=== PATIENT | male | born 1965 | race Caucasian/White ===

== ENCOUNTER 2019-10-31 17:11 | Inpatient (IN) | payer BC ==
--- NOTE | 2019-10-31 18:37 | PDOC ---
History of Present Illness - General Chief Complaint: Pain Stated Complaint: ABDOMINAL PAIN Time Seen by Provider: 10/31/19 18:10 History Source: Patient Exam Limitations: No Limitations - History of Present Illness Travel History: No Initial Comments: 10/31/19 18:31 53-year-old male presents to ED with complaints of lower abdominal pain associated with nausea and vomited x1 this morning. Patient states went to an urgent care clinic and was sent here for further evaluation to intestinal obstruction. Patient states abdomen feels firm remains to move his bowels. Patient denies fever, chills or change in urine pattern. Patient does state history of BPH and states he has had more difficulty making urine this morning. Patient states is followed by Dr. Chuy Jones who is aware of patient's ER visit today. Patient denies any GI surgery or GI history including diverticulosis Timing/Duration: reports: constant Quality: reports: mild, cramping Abdominal Pain Onset Location: reports: RLQ, LLQ, suprapubic Pain Radiation: reports: no radiation Activities at Onset: reports: none Aggravating Factors: improves with: None Alleviating Factors: improves with: None Past History - Travel History Traveled outside of the country in the last 30 days: No Close contact w/someone who was outside of country & ill: No - Medical History Allergies/Adverse Reactions: Allergies Allergy/AdvReac Type Severity Reaction Status Date / Time No Known Allergies Allergy Verified 11/01/19 13:46 Home Medications: Ambulatory Orders Alfuzosin HCl [Alfuzosin HCl ER] 10 mg PO DAILY 10/31/19 Levothyroxine Sodium [Synthroid] 88 mcg PO DAILY 10/31/19 Pantoprazole Sodium [Protonix -] 40 mg PO DAILY 30 Days #30 tablet.ec 11/04/19 COPD: No Thyroid Disease: No Other medical history: prostate - Surgical History Abdominal Surgery: Yes (hernia) - Psycho-Social/Smoking History Patient Lives Alone: No Lives with/in: spouse/SO Smoking Status: No Smoking History: Never smoked Number of Cigarettes Smoked Daily: 0 - Substance Abuse Hx (Audit-C & DAST Scrn) How often the patient has a drink containing alcohol: Never Score: In Men: 4 or > Positive; In Women: 3 or > Positive: 0 Screen Result (Pos requires Nsg. Audit-10AR): Negative Review of Systems - Review of Systems Able to Perform ROS?: No Is the patient limited Azerbaijani proficient: No Constitutional: No: Symptoms Reported HEENTM: No: Symptoms Reported Respiratory: No: Symptoms reported Cardiac (ROS): No: Symptoms Reported ABD/GI: Yes: Nausea, Vomiting, Abdominal cramping. No: Constipated, Diarrhea : Yes: Frequency. No: Testicular Pain Musculoskeletal: No: Symptoms Reported Integumentary: No: Symptoms Reported Neurological: No: Symptoms reported Endocrine: No: Symptoms Reported Hematologic/Lymphatic: No: Symptoms Reported *Physical Exam - Vital Signs Last Vital Signs Temp Pulse Resp BP Pulse Ox 97 F L 68 18 128/80 99 10/31/19 17:26 10/31/19 17:26 10/31/19 17:26 10/31/19 17:26 10/31/19 17:26 - Physical Exam General Appearance: Yes: Nourished, Appropriately Dressed. No: Apparent Distress HEENT: negative: Pale Conjunctivae Neck: positive: Normal Thyroid, Supple. negative: Decreased range of motion Respiratory/Chest: positive: Lungs Clear, Normal Breath Sounds. negative: Respiratory Distress, Accessory Muscle Use Gastrointestinal/Abdominal: positive: Normal Bowel Sounds, Tenderness (Left mid and right suprapubic along with lower quadrants). negative: Soft (Firm), Distended, Guarding, Rebound Male Genitalia: positive: normal genitalia Musculoskeletal: negative: CVA Tenderness Extremity: positive: Normal Inspection Integumentary: positive: Normal Color, Warm, Moist Neurologic: positive: Motor Strength 5/5 (ambualtory) ED Treatment Course - LABORATORY CBC & Chemistry Diagram: 11/02/19 07:30 11/03/19 07:10 Medical Decision Making - Medical Decision Making 10/31/19 18:36 Chief complaint: Patient with no abdominal pain short nausea and vomiting since this morning. Patient states increased urination over the past 24 hours but states history of BPH. Patient denies GI history but was sent from urgent care clinic to rule out obstruction. Exam: Patient's abdomen firm without guarding or rebound bowel sounds present x4 no palpable mass. Plan: CBC, comp, urine IV fluids, Zofran, IV Tylenol, and CAT scan ordered Discharge - Discharge Information Problems reviewed: Yes Clinical Impression/Diagnosis: SBO (small bowel obstruction) Condition: Stable Disposition: HOME - Follow up/Referral - Patient Discharge Instructions - Post Discharge Activity
[2019-10-31] MEDS ORDERED: ACETAMINOPHEN 1000 MG/100 ML VIAL (NON FORMULARY) IVPB ONE (18:38)
[2019-10-31] MEDS ORDERED: SODIUM CHLORIDE 1,000 ML IV STA (18:38)
[2019-10-31] MEDS ORDERED: ONDANSETRON 4 MG/2 ML VIAL IVPUSH ONE (18:38)
[2019-10-31] MEDS ORDERED: ACETAMINOPHEN INJECTION 100 ML IVPB ONE (18:50)
[2019-10-31 20:06] LABS: URINE APPEARANCE CLEAR; URINE BILIRUBIN NEGATIVE (NEGATIVE); URINE COLOR YELLOW; URINE GLUCOSE (UA) NEGATIVE (NEGATIVE); URINE KETONE TRACE (NEGATIVE); URINE LEUK ESTERASE NEGATIVE (NEGATIVE); URINE NITRITE NEGATIVE (NEGATIVE); URINE PROTEIN TRACE (NEGATIVE); URINE UROBILINOGEN 0.2 mg/dL (0.2-1.0)
[2019-10-31 20:11] LABS: BASO % 0.2 % (0-2.0); EOS % 0.2 % (0-4.5); HEMATOCRIT 45.5 % (35.4-49); HEMOGLOBIN 15.4 GM/dL (11.7-16.9); LYMPH % 7.9 % (8-40); MCH 31.9 pg (25.7-33.7); MCHC 33.9 g/dl (32.0-35.9); MEAN CELL VOLUME 94.2 fl (80-96); MEAN PLT VOLUME 8.5 fl (7.5-11.1); NEUT % 88.7 % (42.8-82.8); PLATELET COUNT 193 K/MM3 (134-434); RBC 4.83 M/mm3 (4.00-5.60); RDW 12.8 % (11.9-15.9); WHITE BLOOD COUNT 10.6 K/mm3 (4.0-10.0)
--- NOTE | 2019-10-31 20:23 | PDOC ---
*Physical Exam - Vital Signs Last Vital Signs Temp Pulse Resp BP Pulse Ox 97 F L 68 18 128/80 99 10/31/19 17:26 10/31/19 17:26 10/31/19 17:26 10/31/19 17:26 10/31/19 17:26 - Physical Exam 10/31/19 20:23 Received sign out <Bennett Pineda - Last Filed: 10/31/19 20:23> - Vital Signs Last Vital Signs Temp Pulse Resp BP Pulse Ox 97 F L 68 18 128/80 99 10/31/19 17:26 10/31/19 17:26 10/31/19 17:26 10/31/19 17:26 10/31/19 17:26 <Negin Sepulveda - Last Filed: 10/31/19 23:11> ED Treatment Course - LABORATORY CBC & Chemistry Diagram: 10/31/19 19:00 10/31/19 19:00 - ADDITIONAL ORDERS Additional order review: Laboratory Results 10/31/19 19:00 Urine Color Yellow Urine Appearance Clear Urine pH 5.0 Ur Specific [place] 1.023 Urine Protein Trace Urine Glucose (UA) Negative Urine Ketones Trace H Urine Blood Negative Urine Nitrite Negative Urine Bilirubin Negative Urine Urobilinogen 0.2 Ur Leukocyte Esterase Negative 10/31/19 19:00 RBC 4.83 MCV 94.2 MCHC 33.9 RDW 12.8 MPV 8.5 Neutrophils % 88.7 H Lymphocytes % 7.9 L Monocytes % 3.0 L Eosinophils % 0.2 Basophils % 0.2 - Medications Given in the ED: ED Medications Discontinued Medications Generic Name Dose Route Start Last Admin Trade Name Shantal PRN Reason Stop Dose Admin Acetaminophen 1,000 mg 10/31/19 18:38 10/31/19 19:14 Ofirmev Injection - IVPB 10/31/19 18:39 1,000 mg ONCE ONE Administration Sodium Chloride 1,000 mls @ 1,000 mls/hr 10/31/19 18:38 10/31/19 19:14 Normal Saline - IV 10/31/19 19:37 1,000 mls/hr ASDIR STA Administration Ondansetron HCl 4 mg 10/31/19 18:38 10/31/19 19:14 Zofran Injection IVPUSH 10/31/19 18:39 4 mg ONCE ONE Administration <Bennett Pienda - Last Filed: 10/31/19 20:23> - LABORATORY CBC & Chemistry Diagram: 10/31/19 19:00 10/31/19 19:00 - ADDITIONAL ORDERS Additional order review: Laboratory Results 10/31/19 10/31/19 10/31/19 22:15 19:00 19:00 PT with INR 12.60 INR 1.07 Sodium 138 Potassium 4.1 Chloride 104 Carbon Dioxide 26 Anion Gap 8 BUN 17.1 Creatinine 0.7 Est GFR (CKD-EPI)AfAm 123.13 Est GFR (CKD-EPI)NonAf 106.24 Random Glucose 102 Calcium 9.4 Magnesium 2.3 Total Bilirubin 1.0 AST 17 ALT 35 Alkaline Phosphatase 85 Total Protein 7.6 Albumin 4.5 Lipase 77 Urine Color Yellow Urine Appearance Clear Urine pH 5.0 Ur Specific [place] 1.023 Urine Protein Trace Urine Glucose (UA) Negative Urine Ketones Trace H Urine Blood Negative Urine Nitrite Negative Urine Bilirubin Negative Urine Urobilinogen 0.2 Ur Leukocyte Esterase Negative 10/31/19 19:00 RBC 4.83 MCV 94.2 MCHC 33.9 RDW 12.8 MPV 8.5 Neutrophils % 88.7 H Lymphocytes % 7.9 L Monocytes % 3.0 L Eosinophils % 0.2 Basophils % 0.2 - Medications Given in the ED: ED Medications Discontinued Medications Generic Name Dose Route Start Last Admin Trade Name Shantal PRN Reason Stop Dose Admin Acetaminophen 1,000 mg 10/31/19 18:38 10/31/19 19:14 Ofirmev Injection - IVPB 10/31/19 18:39 1,000 mg ONCE ONE Administration Sodium Chloride 1,000 mls @ 1,000 mls/hr 10/31/19 18:38 10/31/19 19:14 Normal Saline - IV 10/31/19 19:37 1,000 mls/hr ASDIR STA Administration Ondansetron HCl 4 mg 10/31/19 18:38 10/31/19 19:14 Zofran Injection IVPUSH 10/31/19 18:39 4 mg ONCE ONE Administration <Negin Sepulveda Phyllis - Last Filed: 10/31/19 23:11> Medical Decision Making - Medical Decision Making 10/31/19 23:11 Patient seen by the advanced practice provider under my supervision. Ancillary testing reviewed as necessary. I agree with plan as outlined by the advanced practice provider. <Negin Sepulveda - Last Filed: 10/31/19 23:11> Discharge <Bennett Pineda - Last Filed: 10/31/19 20:23> - Discharge Information Problems reviewed: Yes <Negin Sepulveda - Last Filed: 10/31/19 23:11> - Discharge Information Clinical Impression/Diagnosis: SBO (small bowel obstruction)
[2019-10-31 20:35] LABS: ALBUMIN 4.5 g/dl (3.4-5.0); BLOOD UREA NITROGEN 17.1 mg/dL (7-18); CALCIUM 9.4 mg/dL (8.5-10.1); CREATININE 0.7 mg/dL (0.55-1.3); MAGNESIUM 2.3 mg/dL (1.8-2.4); POTASSIUM 4.1 mmol/L (3.5-5.1); TOT PROT 7.6 g/dl (6.4-8.2)
[2019-10-31 22:50] LABS: INR 1.07 (0.83-1.09); PROTHROMBIN TIME (PATIENT) 12.6 SEC (9.7-13.0)
[2019-10-31] MEDS ORDERED: SODIUM CHLORIDE 1,000 ML IV SCH (23:45)
--- NOTE | 2019-10-31 23:59 | PN ---
Teaching Attending Note Name of Resident: Norman Grande ATTENDING PHYSICIAN STATEMENT I saw and evaluated the patient. I reviewed the resident's note and discussed the case with the resident. I agree with the resident's findings and plan as documented. SUBJECTIVE: Patient is a 53 year old man with a PMH of BPH and Hypothyroidism who presents to the ER with complaints of lower abdominal pain associated with nausea and vomitng -this morning. He went to an Urgent care clinic and was sent to the ER for further evaluation to rule out intestinal obstruction. Says he has had more difficulty making urine this morning. Patient denies any GI surgery or GI disease. Patient denies chest pain, shortness of breath, headache, palpitations, dizziness, fever, chills, diarrhea, dysuria, frequency, urgency, melena, hematochezia or hematuria. Denies alcohol, tobacco or illicit drug use. No sick contacts or recent travels. Family history is unremarkable. OBJECTIVE: Alert Vital Signs Period Temp Pulse Resp BP Sys/Ward Pulse Ox Last 24 Hr 97 F 68 18 128/80 99 HEENT: No Jaundice, eye redness or discharge, PERRLA, EOMI. Normocephalic, atraumatic. External ears are normal and hearing is grossly intact. No nasal discharge. Neck: Supple, nontender. No palpable adenopathy or thyromegaly. No JVD Chest: Good effort. Clear to auscultation and percussion. Heart: Regular. No S3, rub or murmur Abdomen: Distended, soft, lower abdominal tenderness and no HSM. No rebound or guarding. Normal bowel sounds. Ext: Peripheral pulses intact. No leg edema. Skin: Warm and dry. No petechiae, rash or ecchymosis. Neuro: Alert. Oriented x3. CN 2-12 grossly intact. Sensation grossly intact in all four extremities and DTR are symmetric. Psych: Appropriate mood and affect. Good insight. Home Medications Medication Instructions Recorded Alfuzosin HCl [Alfuzosin HCl ER] 10 mg PO DAILY 10/31/19 Levothyroxine Sodium [Synthroid] 88 mcg PO DAILY 10/31/19 Abnormal Lab Results 10/31/19 10/31/19 19:00 19:00 WBC 10.6 H Absolute Neuts (auto) 9.4 H Neutrophils % 88.7 H Lymphocytes % 7.9 L Monocytes % 3.0 L Urine Ketones Trace H Current Medications Generic Name Dose Route Start Last Admin Trade Name Freq PRN Reason Stop Dose Admin Sodium Chloride 1,000 mls @ 100 mls/hr 10/31/19 23:45 Normal Saline - IV ASDIR INDY Dextrose/Sodium Chloride 1,000 mls @ 75 mls/hr 11/01/19 00:15 D5-Ns - IV ASDIR INDY ASSESSMENT AND PLAN: 1. Small bowel obstruction - CT abdomen/pelvis shows SBO with transition point in the right pelvis and internal hernia. Will keep him NPO, give IV D5-NS, use Tylenol for pain control and consult Surgery. CXR pending. EKG shows NSR at 63/minute and QTc [address]-T wave changes. Initial troponin is negative. Viral testing for COVID-19 ordered and patient placed on airborne, droplet and contact isolation. Will continue comprehensive care for all of patients comorbid conditions including Synthroid for hypothyroidism. 2. DVT prophylaxis - SCD. 3. Advance directives - Full code
[2019-11-01] MEDS ORDERED: DEXTROSE 5%-NORMAL SALINE 1,000 ML IV SCH (00:15)
[2019-11-01] MEDS ORDERED: ONDANSETRON 4 MG/2 ML VIAL IVPUSH ONE ×2 (00:19→15:00)
--- NOTE | 2019-11-01 02:59 | HP ---
CHIEF COMPLAINT: lower abdominal pain PCP: Dr. Jones HISTORY OF PRESENT ILLNESS: Pt is a 53 yo M with PMH of BPH and Hypothyroidism presenting with lower abdominal pain since 5 AM on 10/30. Pt reports sudden onset non-radiating cramping, 10/24, abdominal pain that is intermittent (episodes every 30 min - 1 hour). Took advil and tylenol with some relief. Associated nausea, non-bloody bilious vomiting (x2, once at home, once in ED), "bloating," and decreased appetite. Pt has not moved bowels or passed flatus since the onset of the pain. Denies CP, SOB, diarrhea, recent weight loss, fever, or chills. Pt was evaluated at an urgent care and was told to come to the ED for evaluation of an intestinal obstruction. No prior GI surgeries. No prior GI related medical hx other than an internal hernia that was not fixed. Pt also with increased straining during urination, increased frequency of urination but small quantities of urine, and feeling of incomplete emptying over the last day. Pt denies dysuria or hematuria. Pt reports he hasn't been as consistent taking his BPH medication over the last several days, although he usually is. 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 Smoking: Denies Alcohol: Drinks alcohol 5 times a week; usually 1 drink with dinner Drugs: Denies Allergies No Known Allergies Allergy (Verified 10/31/19 17:30) HOME MEDICATIONS: Home Medications Medication Instructions Recorded Alfuzosin HCl [Alfuzosin HCl ER] 10 mg PO DAILY 10/31/19 Levothyroxine Sodium [Synthroid] 88 mcg PO DAILY 10/31/19 REVIEW OF SYSTEMS as per HPI. PHYSICAL EXAMINATION Vital Signs - 24 hr 10/31/19 17:26 Temperature 97 F L Pulse Rate 68 Respiratory 18 Rate Blood Pressure 128/80 O2 Sat by Pulse 99 Oximetry (%) GENERAL: Awake, alert, and fully oriented, in no acute distress. Pt in mild discomfort HEAD: NCAT EYES: Pupils equal, round and reactive to light, extraocular movements intact, sclera anicteric, conjunctiva clear. EARS, NOSE, THROAT: Oropharynx clear without exudates. Dry mucuous membranes. NECK: Normal range of motion, supple without lymphadenopathy LUNGS: Breath sounds equal, clear to auscultation bilaterally. No wheezes, and no crackles. No accessory muscle use. HEART: Regular rate and rhythm, normal S1 and S2 without murmur, rub or gallop. ABDOMEN: Tense, mildly distended abdomen; mild tenderness to palpation of lower abdominal quadrants with mild rebound tenderness CHRISTOPHER: no external hemorrhoids; good rectal tone; no saleem bleeding; small amounts of stool in rectal vault; no other masses or bulges palpated internally MUSCULOSKELETAL: Moving all extremities equally and spontaneously UPPER EXTREMITIES: 2+ pulses, warm, well-perfused. No peripheral edema. LOWER EXTREMITIES: 2+ pulses, warm, well-perfused. No peripheral edema. NEUROLOGICAL: Sensation to light touch intact. Normal speech. Normal gait. PSYCHIATRIC: Cooperative. Good eye contact. Appropriate mood and affect. SKIN: Warm, dry, normal turgor, no rashes or lesions. Laboratory Results - last 24 hr 10/31/19 10/31/19 10/31/19 19:00 19:00 19:00 WBC 10.6 H RBC 4.83 Hgb 15.4 Hct 45.5 MCV 94.2 MCH 31.9 MCHC 33.9 RDW 12.8 Plt Count 193 MPV 8.5 Absolute Neuts (auto) 9.4 H Neutrophils % 88.7 H Lymphocytes % 7.9 L Monocytes % 3.0 L Eosinophils % 0.2 Basophils % 0.2 Nucleated RBC % 0 PT with INR INR Sodium 138 Potassium 4.1 Chloride 104 Carbon Dioxide 26 Anion Gap 8 BUN 17.1 Creatinine 0.7 Est GFR (CKD-EPI)AfAm 123.13 Est GFR (CKD-EPI)NonAf 106.24 Random Glucose 102 Calcium 9.4 Magnesium 2.3 Total Bilirubin 1.0 AST 17 ALT 35 Alkaline Phosphatase 85 Creatine Kinase Troponin I Total Protein 7.6 Albumin 4.5 Lipase 77 Urine Color Yellow Urine Appearance Clear Urine pH 5.0 Ur Specific [place] 1.023 Urine Protein Trace Urine Glucose (UA) Negative Urine Ketones Trace H Urine Blood Negative Urine Nitrite Negative Urine Bilirubin Negative Urine Urobilinogen 0.2 Ur Leukocyte Esterase Negative Blood Type Antibody Screen 10/31/19 10/31/19 10/31/19 22:15 22:15 22:15 WBC RBC Hgb Hct MCV MCH MCHC RDW Plt Count MPV Absolute Neuts (auto) Neutrophils % Lymphocytes % Monocytes % Eosinophils % Basophils % Nucleated RBC % PT with INR 12.60 INR 1.07 Sodium Potassium Chloride Carbon Dioxide Anion Gap BUN Creatinine Est GFR (CKD-EPI)AfAm Est GFR (CKD-EPI)NonAf Random Glucose Calcium Magnesium Total Bilirubin AST ALT Alkaline Phosphatase Creatine Kinase 103 Troponin I < 0.02 Total Protein Albumin Lipase Urine Color Urine Appearance Urine pH Ur Specific [place] Urine Protein Urine Glucose (UA) Urine Ketones Urine Blood Urine Nitrite Urine Bilirubin Urine Urobilinogen Ur Leukocyte Esterase Blood Type O NEGATIVE Antibody Screen Negative ASSESSMENT/PLAN: Pt is a 53 yo M with PMH of BPH and hypothyroidism presenting with lower abdominal pain since this morning; CT significant for SBO with transition pt in R pelvis and internal hernia. Pt being admitted for small bowel obstruction. 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 #DVT PPx - SCDs #FEN -F - D5-NS @ 75 cc/hr -E - monitor; repletes lytes PRN -N - NPO #Dispo Admit to med-surg Code Status - full code Family Medical History Family History: As Documented Visit type - Emergency Visit Emergency Visit: Yes ED Registration Date: 10/31/19 Care time: The patient presented to the Emergency Department on the above date and was hospitalized for further evaluation of their emergent condition. - New Patient This patient is new to me today: Yes Date on this admission: 11/01/19 - Critical Care Critical Care patient: No ATTENDING PHYSICIAN STATEMENT I saw and evaluated the patient. I reviewed the resident's note and discussed the case with the resident. I agree with the resident's findings and plan as documented. SUBJECTIVE: OBJECTIVE: ASSESSMENT AND PLAN:
[2019-11-01] MEDS: DEXTROSE 5%-NORMAL SALINE 1,000 ML IV SCH ×2 (08:00→23:43)
[2019-11-01 08:44] LABS: BASO % 0.3 % (0-2.0); HEMATOCRIT 44.3 % (35.4-49); LYMPH % 12.5 % (8-40); MCH 31.3 pg (25.7-33.7); MCHC 33.8 g/dl (32.0-35.9); MEAN CELL VOLUME 92.5 fl (80-96); MEAN PLT VOLUME 7.9 fl (7.5-11.1); MONO % 4.3 % (3.8-10.2); NEUT % 82.9 % (42.8-82.8); PLATELET COUNT 215 K/MM3 (134-434); RBC 4.79 M/mm3 (4.00-5.60); WHITE BLOOD COUNT 9.4 K/mm3 (4.0-10.0)
[2019-11-01] MEDS: LEVOTHYROXINE NA 88 MCG TABLET (FP) PO SCH (08:46)
--- NOTE | 2019-11-01 09:16 | EKG ---
Test Reason : Blood Pressure : / mmHG Vent. Rate : 063 BPM Atrial Rate : 063 BPM P-R Int : 136 ms QRS Dur : 096 ms QT Int : 418 ms P-R-T Axes : 057 055 053 degrees QTc Int : 427 ms NORMAL SINUS RHYTHM NORMAL ECG WHEN COMPARED WITH ECG OF 05-AUG-1999 22:19, NO SIGNIFICANT CHANGE WAS FOUND Confirmed by ALYSA MENG MD ([id number]) on 11/01/2019 9:15:25 AM Referred By: Confirmed By:ALYSA MENG MD
[2019-11-01 09:19] LABS: ALBUMIN 3.9 g/dl (3.4-5.0); BILIRUBIN,TOTAL 0.6 mg/dL (0.2-1); CREATININE 0.7 mg/dL (0.55-1.3); MAGNESIUM 2.3 mg/dL (1.8-2.4); PHOSPHOROUS 3.9 mg/dL (2.5-4.9); POTASSIUM 4.2 mmol/L (3.5-5.1); TOT PROT 6.8 g/dl (6.4-8.2)
--- NOTE | 2019-11-01 09:55 | CONSULT ---
- Consultation REQUESTING PROVIDER: Garcia Barrios - General Surgery CONSULT REQUEST: We have been asked to surgically evaluate this patient for ABD pain w/ associated n/v PCP: Victor Hugo Arenas MD HPI: Called to nghia 53 yo M with PMHx as noted below. Presents to [facility] ED for evaluation of his ABD pain (acute onset) which began yesterday around 5AM. Admits to associated n/v (nbnb) twice at home and once in the ED and nothing since. Patient went to [facility] for evaluation who referred him straight to [facility] ED for emergent evaluation. Tried to alleviate symptoms with Advil...minimal relief. States his last BM was Friday (formed). Initially, pain was 8/10. Now he reports it's greatly reduced and now about 4/10. said she noticed he looked yellow (head to toe) and was very concerned. Now in ED and said he looks normal. He denies CP, palpitations, SOB , or [place]. Denies [place], dizziness, fever, chills, or diarrhea. Denies dysuria, hematuria, melena or hematochezia. Denies sick contacts or recent travels. Denies family history of colon cancer. While in the ED he had an ABD/Pelvis CT scan: high grade PSBO w/ site of obstruction within the RLQ. PMHx: BPH. Hypothyroidism. PSHx: Right IHR w/ mesh ~ 8-10 years ago at [facility] (Dr. Barrios) Home Meds Alfuzosin HCL 10 mg PO Daily Synthroid 88 mcg PO Daily Allergies: NKDA ROS: 12 system review conducted and considered negative except for what's conta ined in the HPI. PE: GENERAL: A&O. NAD. HEAD: NC. AT. EYES: PERRL, sclera anicteric, conjunctiva clear. NECK: Normal ROM, supple without lymphadenopathy, JVD, or masses. LUNGS: Unlabored respirations on room air HEART: RRR ABDOMEN: Distended. Bowel sounds present but sluggish. Suprapubic mildly ttp. No guarding/rebound/rigidity. MUSCULOSKELETAL: No CVAT bilat UE: 2+ pulses, warm, well-perfused. No cyanosis. Cap refill <2 seconds. No peripheral edema. LE: 2+ pulses, warm, well-perfused. No calf tenderness. No peripheral edema. NEUROLOGICAL: Normal speech, gait not observed. PSYCH: Cooperative. Good eye contact. Appropriate mood and affect. Last Vital Signs Temp Pulse Resp BP Pulse Ox 97 F L 68 18 128/80 99 10/31/19 17:26 10/31/19 17:26 10/31/19 17:26 10/31/19 17:26 10/31/19 17:26 CBC, BMP 11/01/19 08:05 11/01/19 08:05 INR, PTT INR 1.07 (0.83-1.09) 10/31/19 22:15 Hepatic Panel Total Bilirubin 0.6 mg/dL (0.2-1) 11/01/19 08:05 AST 14 U/L (15-37) L 11/01/19 08:05 ALT 29 U/L (13-61) 11/01/19 08:05 Alkaline Phosphatase 77 U/L (45-117) 11/01/19 08:05 Albumin 3.9 g/dl (3.4-5.0) 11/01/19 08:05 Urine Test Results Urine Color Yellow 10/31/19 19:00 Urine Appearance Clear 10/31/19 19:00 Urine pH 5.0 (5.0-8.0) 10/31/19 19:00 Ur Specific [place] 1.023 (1.010-1.035) 10/31/19 19:00 Urine Protein Trace (NEGATIVE) 10/31/19 19:00 Urine Glucose (UA) Negative (NEGATIVE) 10/31/19 19:00 Urine Ketones Trace (NEGATIVE) H 10/31/19 19:00 Urine Blood Negative (NEGATIVE) 10/31/19 19:00 Urine Nitrite Negative (NEGATIVE) 10/31/19 19:00 Urine Bilirubin Negative (NEGATIVE) 10/31/19 19:00 Ur Leukocyte Esterase Negative (NEGATIVE) 10/31/19 19:00 Blood Type Blood Type O NEGATIVE 10/31/19 22:15 Serology Test 11/01/19 00:17 COVID-19 (EMILEE) Pending Laboratory Test 10/31/19 19:00 Lipase 77 Problem List - Problems (1) SBO (small bowel obstruction) Assessment/Plan: 53 yo male admitted with abd pain. ABD CT imaging consistent with high grade PSBO w/ site of obstruction within the RLQ. N/V resolved. States he passed a small amount of flatus early this morning. Feels a little better compared to when he was first admitted. He is comfortably. Non-toxic appearing. 1. Strict NPO (no ice chips) 2. IVF 3. CBC, BMP in AM 4. Replete elytes prn 5. GI PPx 6. DVT PPx 7. Serial ABD exams 9. Serial AXRs (flat and upright) 10. Covid pending; strict isolation precaution 11. Recommend NGT if n/v resume Above plan discussed with Dr. Barrios and agrees. Code(s): K56.609 - UNSP INTESTNL OBST, UNSP TO PARTIAL VERSUS COMPLETE OBST (2) BPH (benign prostatic hyperplasia) Code(s): N40.0 - BENIGN PROSTATIC HYPERPLASIA WITHOUT LOWER URINRY TRACT SYMP (3) Hypothyroidism Code(s): E03.9 - HYPOTHYROIDISM, UNSPECIFIED
[2019-11-01] MEDS ORDERED: ACETAMINOPHEN 1000 MG/100 ML VIAL (NON FORMULARY) IVPB PRN (10:37)
--- NOTE | 2019-11-01 13:23 | PN ---
Teaching Attending Note Name of Resident: Grzegorz Castillo ATTENDING PHYSICIAN STATEMENT I saw and evaluated the patient. I reviewed the resident's note and discussed the case with the resident. I agree with the resident's findings and plan as documented. SUBJECTIVE: Abdominal pain/nausea/vomiting improved. No fever/chills. Small amount of flatus this morning. No BM. OBJECTIVE: Afebrile, Hemodynamnically Stable. Last Vital Signs Temp Pulse Resp BP Pulse Ox 97.0 F L 80 20 132/77 97 11/01/19 10:11/01/19 10:00 11/01/19 10:00 11/01/19 10:11/01/19 10:00 HEENt - Atraumatic, Normocephalic. Heart - S1 S2, RRR Lungs - clear to auscultation Abdomen - some mild distension with mild generalized tenderness. Extremities - no edema, no calf tenderness. Neuro - AAO x 3. Tone/Power normal all extremities. Laboratory Results - last 24 hr 10/31/19 10/31/19 10/31/19 19:00 19:00 19:00 WBC 10.6 H RBC 4.83 Hgb 15.4 Hct 45.5 MCV 94.2 MCH 31.9 MCHC 33.9 RDW 12.8 Plt Count 193 MPV 8.5 Absolute Neuts (auto) 9.4 H Neutrophils % 88.7 H Lymphocytes % 7.9 L Monocytes % 3.0 L Eosinophils % 0.2 Basophils % 0.2 Nucleated RBC % 0 PT with INR INR Sodium 138 Potassium 4.1 Chloride 104 Carbon Dioxide 26 Anion Gap 8 BUN 17.1 Creatinine 0.7 Est GFR (CKD-EPI)AfAm 123.13 Est GFR (CKD-EPI)NonAf 106.24 Random Glucose 102 Calcium 9.4 Phosphorus Magnesium 2.3 Total Bilirubin 1.0 AST 17 ALT 35 Alkaline Phosphatase 85 Creatine Kinase Troponin I Total Protein 7.6 Albumin 4.5 Lipase 77 Urine Color Yellow Urine Appearance Clear Urine pH 5.0 Ur Specific [place] 1.023 Urine Protein Trace Urine Glucose (UA) Negative Urine Ketones Trace H Urine Blood Negative Urine Nitrite Negative Urine Bilirubin Negative Urine Urobilinogen 0.2 Ur Leukocyte Esterase Negative Blood Type Antibody Screen 10/31/19 10/31/19 10/31/19 22:15 22:15 22:15 WBC RBC Hgb Hct MCV MCH MCHC RDW Plt Count MPV Absolute Neuts (auto) Neutrophils % Lymphocytes % Monocytes % Eosinophils % Basophils % Nucleated RBC % PT with INR 12.60 INR 1.07 Sodium Potassium Chloride Carbon Dioxide Anion Gap BUN Creatinine Est GFR (CKD-EPI)AfAm Est GFR (CKD-EPI)NonAf Random Glucose Calcium Phosphorus Magnesium Total Bilirubin AST ALT Alkaline Phosphatase Creatine Kinase 103 Troponin I < 0.02 Total Protein Albumin Lipase Urine Color Urine Appearance Urine pH Ur Specific [place] Urine Protein Urine Glucose (UA) Urine Ketones Urine Blood Urine Nitrite Urine Bilirubin Urine Urobilinogen Ur Leukocyte Esterase Blood Type O NEGATIVE Antibody Screen Negative 11/01/19 11/01/19 08:05 08:05 WBC 9.4 RBC 4.79 Hgb 15.0 Hct 44.3 MCV 92.5 MCH 31.3 MCHC 33.8 RDW 13.0 Plt Count 215 MPV 7.9 Absolute Neuts (auto) 7.8 Neutrophils % 82.9 H Lymphocytes % 12.5 D Monocytes % 4.3 Eosinophils % 0.0 D Basophils % 0.3 Nucleated RBC % 0 PT with INR INR Sodium 139 Potassium 4.2 Chloride 106 Carbon Dioxide 23 Anion Gap 10 BUN 19.0 H Creatinine 0.7 Est GFR (CKD-EPI)AfAm 123.13 Est GFR (CKD-EPI)NonAf 106.24 Random Glucose 125 H Calcium 9.0 Phosphorus 3.9 Magnesium 2.3 Total Bilirubin 0.6 AST 14 L ALT 29 Alkaline Phosphatase 77 Creatine Kinase Troponin I Total Protein 6.8 Albumin 3.9 Lipase Urine Color Urine Appearance Urine pH Ur Specific [place] Urine Protein Urine Glucose (UA) Urine Ketones Urine Blood Urine Nitrite Urine Bilirubin Urine Urobilinogen Ur Leukocyte Esterase Blood Type Antibody Screen Current Medications Generic Name Dose Route Start Last Admin Trade Name Freq PRN Reason Stop Dose Admin Acetaminophen 1,000 mg 11/01/19 10:37 Ofirmev Injection - IVPB 11/02/19 10:37 Q6H PRN PAIN Heparin Sodium (Porcine) 5,000 unit 11/01/19 14:00 Heparin - SQ TID INDY Dextrose/Sodium Chloride 1,000 mls @ 125 mls/hr 11/01/19 07:37 11/01/19 08:00 D5-Ns - IV 125 mls/hr ASDIR INDY Administration Levothyroxine Sodium 88 mcg 11/01/19 07:00 11/01/19 08:46 Synthroid - PO Not Given ACBK [facility] Pantoprazole Sodium 40 mg 11/02/19 10:00 Protonix Iv IVPUSH DAILY [facility] Tamsulosin HCl 0.4 mg 11/02/19 08:30 Flomax - PO DAILY@0830 [facility] Home Medications Medication Instructions Recorded Alfuzosin HCl [Alfuzosin HCl ER] 10 mg PO DAILY 10/31/19 Levothyroxine Sodium [Synthroid] 88 mcg PO DAILY 10/31/19 ASSESSMENT AND PLAN: 53 year old male with history of BPH, Hypothyroidism, presents with lower abdominal pain, nausea vomiting, found to have SBO. CT A/P - SBO with transition point in R pelvis 1. Small Bowel Obstruction NPO/IV hydration N/V resolved, no need for NG tube. Surgery consulted. 2. BPH - Continue Alfuzosin (Tamsulosin formulary here). 3. Hypothyroidism - Continue Levothyroxine. DVT Px - Heparin SQ GI Px - PPI
[2019-11-01] MEDS ORDERED: HEPARIN NA (PORCINE) 5,000 UNITS/ML 1ML VIAL ONE (13:55)
[2019-11-01] MEDS: HEPARIN NA (PORCINE) 5,000 UNITS/ML 1ML VIAL SQ SCH ×2 (14:22→22:24)
[2019-11-01] MEDS ORDERED: HEPARIN NA (PORCINE) 5,000 UNITS/ML 1ML VIAL SQ SCH (18:00)
[2019-11-01 18:16] VITALS: BMI 26.6
--- NOTE | 2019-11-01 18:44 | PN ---
Physical Exam: SUBJECTIVE: 1 episode of bilious vomiting overnight. Passing gas. Denies BM. Patient seen and examined. Endorses abd pain improved slightly. OBJECTIVE: Vital Signs Period Temp Pulse Resp BP Sys/Ward Pulse Ox Last 24 Hr 97.0 F-98.1 F 80-81 18-20 123-132/77-80 97-97 GENERAL: The patient is awake, alert, and fully oriented, in no acute distress. HEENT: Normal with no signs of trauma.No ptosis. LUNGS: Breath sounds equal, clear to auscultation bilaterally, no wheezes, no crackles, no accessory muscle use. HEART: Regular rate and rhythm, S1, S2 without murmur, rub or gallop. ABDOMEN: nondistended, normoactive bowel sounds, no guarding, no rebound. TTP below the umbilicus EXTREMITIES: 2+ pulses, warm, well-perfused, no edema. NEUROLOGICAL: Normal speech, gait not observed. PSYCH: Normal mood, normal affect. Laboratory Results - last 24 hr 10/31/19 10/31/19 10/31/19 19:00 19:00 19:00 WBC 10.6 H RBC 4.83 Hgb 15.4 Hct 45.5 MCV 94.2 MCH 31.9 MCHC 33.9 RDW 12.8 Plt Count 193 MPV 8.5 Absolute Neuts (auto) 9.4 H Neutrophils % 88.7 H Lymphocytes % 7.9 L Monocytes % 3.0 L Eosinophils % 0.2 Basophils % 0.2 Nucleated RBC % 0 PT with INR INR Sodium 138 Potassium 4.1 Chloride 104 Carbon Dioxide 26 Anion Gap 8 BUN 17.1 Creatinine 0.7 Est GFR (CKD-EPI)AfAm 123.13 Est GFR (CKD-EPI)NonAf 106.24 Random Glucose 102 Calcium 9.4 Phosphorus Magnesium 2.3 Total Bilirubin 1.0 AST 17 ALT 35 Alkaline Phosphatase 85 Creatine Kinase Troponin I Total Protein 7.6 Albumin 4.5 Lipase 77 Urine Color Yellow Urine Appearance Clear Urine pH 5.0 Ur Specific [place] 1.023 Urine Protein Trace Urine Glucose (UA) Negative Urine Ketones Trace H Urine Blood Negative Urine Nitrite Negative Urine Bilirubin Negative Urine Urobilinogen 0.2 Ur Leukocyte Esterase Negative Blood Type Antibody Screen 10/31/19 10/31/19 10/31/19 22:15 22:15 22:15 WBC RBC Hgb Hct MCV MCH MCHC RDW Plt Count MPV Absolute Neuts (auto) Neutrophils % Lymphocytes % Monocytes % Eosinophils % Basophils % Nucleated RBC % PT with INR 12.60 INR 1.07 Sodium Potassium Chloride Carbon Dioxide Anion Gap BUN Creatinine Est GFR (CKD-EPI)AfAm Est GFR (CKD-EPI)NonAf Random Glucose Calcium Phosphorus Magnesium Total Bilirubin AST ALT Alkaline Phosphatase Creatine Kinase 103 Troponin I < 0.02 Total Protein Albumin Lipase Urine Color Urine Appearance Urine pH Ur Specific [place] Urine Protein Urine Glucose (UA) Urine Ketones Urine Blood Urine Nitrite Urine Bilirubin Urine Urobilinogen Ur Leukocyte Esterase Blood Type O NEGATIVE Antibody Screen Negative 11/01/19 11/01/19 08:05 08:05 WBC 9.4 RBC 4.79 Hgb 15.0 Hct 44.3 MCV 92.5 MCH 31.3 MCHC 33.8 RDW 13.0 Plt Count 215 MPV 7.9 Absolute Neuts (auto) 7.8 Neutrophils % 82.9 H Lymphocytes % 12.5 D Monocytes % 4.3 Eosinophils % 0.0 D Basophils % 0.3 Nucleated RBC % 0 PT with INR INR Sodium 139 Potassium 4.2 Chloride 106 Carbon Dioxide 23 Anion Gap 10 BUN 19.0 H Creatinine 0.7 Est GFR (CKD-EPI)AfAm 123.13 Est GFR (CKD-EPI)NonAf 106.24 Random Glucose 125 H Calcium 9.0 Phosphorus 3.9 Magnesium 2.3 Total Bilirubin 0.6 AST 14 L ALT 29 Alkaline Phosphatase 77 Creatine Kinase Troponin I Total Protein 6.8 Albumin 3.9 Lipase Urine Color Urine Appearance Urine pH Ur Specific [place] Urine Protein Urine Glucose (UA) Urine Ketones Urine Blood Urine Nitrite Urine Bilirubin Urine Urobilinogen Ur Leukocyte Esterase Blood Type Antibody Screen Active Medications Generic Name Dose Route Start Last Admin Trade Name Freq PRN Reason Stop Dose Admin Acetaminophen 1,000 mg 11/01/19 10:37 Ofirmev Injection - IVPB 11/02/19 10:37 Q6H PRN PAIN Heparin Sodium (Porcine) 5,000 unit 11/01/19 14:00 11/01/19 14:22 Heparin - SQ 5,000 unit TID INDY Administration Dextrose/Sodium Chloride 1,000 mls @ 125 mls/hr 11/01/19 07:37 11/01/19 08:00 D5-Ns - IV 125 mls/hr ASDIR INDY Administration Levothyroxine Sodium 88 mcg 11/01/19 07:00 11/01/19 08:46 Synthroid - PO Not Given ACBK INDY Pantoprazole Sodium 40 mg 11/02/19 10:00 Protonix Iv IVPUSH DAILY INDY Tamsulosin HCl 0.4 mg 11/02/19 08:30 Flomax - PO DAILY@0830 [facility] CTAP: liver is mildy hypodense in texture consistent with diffuse fatty infiltration. 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 distal ileal loops are normal in caliber. appearance suggests a partial SBO w/ site of obstruction within the Right lower quadrant. Fecalization of distal ileal loop ASSESSMENT/PLAN: 53 YO M PMH hypothyroidism & BPH p/w lower abdominal pain since AM on 10/30. CTAP was signifcant for SBO with site of obstruction in RLQ. Admitted for SBO. #Small Bowel Obstruction -CTAP: SBO -h/o hernia repair. CTAP shows (possibly 2/2 to internal hernia) -NPO (no ice chips) -D5-NS increased to 125 ml/hr -IV ofirmev for pain -no NG tube currently -s/p zofran for nausea. -surgery consult appreciated. ng tube if N/V resume. #Hypothyroidism - c/w home rx synthroid 88 mcg PO Daily #BPH -c/w tamsulosin -c/o of urinary straining at admission. likely 2/2 to rx non-adherence. takes alfuzosin 10 mg daily at home. -consider bladder scan if urinary retention exacerbates #DVT PPX heparin sq SCDs #FEN D5-NS increased to 125 ml/hr monitor lytes NPO (no ice chips) #DISPO med surg Visit type - Emergency Visit Emergency Visit: Yes ED Registration Date: 10/31/19 Care time: The patient presented to the Emergency Department on the above date and was hospitalized for further evaluation of their emergent condition. - New Patient This patient is new to me today: Yes Date on this admission: 11/01/19 - Critical Care Critical Care patient: No ATTENDING PHYSICIAN STATEMENT I saw and evaluated the patient. I reviewed the resident's note and discussed the case with the resident. I agree with the resident's findings and plan as documented. SUBJECTIVE: OBJECTIVE: ASSESSMENT AND PLAN:
[2019-11-02] MEDS: HEPARIN NA (PORCINE) 5,000 UNITS/ML 1ML VIAL SQ SCH ×3 (06:12→21:31)
[2019-11-02] MEDS: LEVOTHYROXINE NA 88 MCG TABLET (FP) PO SCH (06:12)
[2019-11-02 07:53] LABS: HEMATOCRIT 39.1 % (35.4-49); HEMOGLOBIN 13.3 GM/dL (11.7-16.9); MCH 31.7 pg (25.7-33.7); MEAN PLT VOLUME 8.1 fl (7.5-11.1); PLATELET COUNT 173 K/MM3 (134-434); RBC 4.21 M/mm3 (4.00-5.60); RDW 12.7 % (11.9-15.9); WHITE BLOOD COUNT 6.3 K/mm3 (4.0-10.0)
[2019-11-02 08:13] LABS: BLOOD UREA NITROGEN 16.1 mg/dL (7-18); CALCIUM 8.2 mg/dL (8.5-10.1); CREATININE 0.7 mg/dL (0.55-1.3); MAGNESIUM 2.2 mg/dL (1.8-2.4); PHOSPHOROUS 2.6 mg/dL (2.5-4.9); POTASSIUM 3.9 mmol/L (3.5-5.1)
[2019-11-02] MEDS: DEXTROSE 5%-NORMAL SALINE 1,000 ML IV SCH ×2 (08:23→16:53)
[2019-11-02] MEDS: TAMSULOSIN HCL 0.4 MG CAP PO SCH (09:38)
[2019-11-02] MEDS: PANTOPRAZOLE SODIUM 40 MG VIAL IVPUSH SCH (09:38)
--- NOTE | 2019-11-02 09:49 | PN ---
Progress Note (short form) - Note Progress Note: Surgery Patient being followed for SBO seen and examined at bedside with no complaints. Patient states the abdominal pain continues to improve and he is having very little pain. He has had two bowel movements since last night and denies any CP, SOB, N/V, fever of chills. Vital Signs Temp 97.9 F 11/02/19 09:36 Pulse 64 11/02/19 09:36 Resp 18 11/02/19 09:36 BP 125/75 11/02/19 09:36 Pulse Ox 98 11/02/19 09:36 Intake & Output 11/01/19 11/01/19 11/02/19 11:59 23:59 11:59 Intake Total 1300 1500 Output Total 27 2 Balance 1273 1498 Weight 170 lb Intake: IV 1300 1500 D5-Ns - 1,000 ml @ 125 1300 1500 mls/hr IV ASDIR INDY Rx#: [id number] Output: Urine 2 2 Void 2 2 Emesis 25 Other: Voiding Method Toilet Bowel Movement Yes # Bowel Movements 2 Height 5 ft 7 in Body Mass Index (BMI) 26.6 Weight Measurement Method Stated by Patient PE: A&Ox3, NAD Unlabored resp on RA ABD: Soft, ND, mild RLQ pain on deep palpation, no guarding or rebound. B/L LE compartments soft, supple and non-tender with +DP pulses Problem List - Problems (1) SBO (small bowel obstruction) Assessment/Plan: Resolving SBO, patient continues to improve. 1. Continue Strict NPO (no ice chips) 2. IVF 3. CBC, BMP in AM 4. Replete elytes prn 5. GI PPx 6. DVT PPx 7. Serial ABD exams 9. No need for abdominal x-ray at this time as it will not be helpful 10. Covid pending; strict isolation precaution 11. Recommend NGT if n/v resume 12. Will consider starting fulls TOMORROW if exam and patient remain stable. Above plan discussed with Dr. Barrios and agrees. Code(s): K56.609 - UNSP INTESTNL OBST, UNSP TO PARTIAL VERSUS COMPLETE OBST
--- NOTE | 2019-11-02 15:11 | PN ---
Teaching Attending Note Name of Resident: Grzegorz Castillo ATTENDING PHYSICIAN STATEMENT I saw and evaluated the patient. I reviewed the resident's note and discussed the case with the resident. I agree with the resident's findings and plan as documented. SUBJECTIVE: Patient feels well, has no complaints eager to try to eat soon OBJECTIVE: Vital Signs Period Temp Pulse Resp BP Sys/Ward Pulse Ox Last 24 Hr 97.9 F-98.7 F 55-81 18-18 106-127/59-80 97-98 GENERAL: Awake, alert, in no acute distress. HEAD: Normal with no signs of trauma. EYES: Pupils equal, round and reactive to light, extraocular movements intact, sclera anicteric, conjunctiva clear. EARS, NOSE, THROAT: Ears normal, nares patent, Moist mucous membranes. NECK: Normal range of motion, No JVD, LUNGS: Breath sounds equal, clear to auscultation bilaterally. No wheezes, and no crackles. No accessory muscle use. HEART: Regular rate and rhythm, normal S1 and S2 without murmur, rub or gallop. ABDOMEN: Soft, tender to deep palpation, BS+ MUSCULOSKELETAL: Normal range of motion at all joints. No bony deformities or tenderness. No CVA tenderness. EXTREMITIES: 2+ pulses, warm, well-perfused. No calf tenderness. No peripheral edema. NEUROLOGICAL: Cranial nerves II-XII intact. Normal speech. PSYCHIATRIC: Cooperative. Good eye contact. Appropriate mood and affect. SKIN: Warm, dry, normal turgor, no rashes or lesions noted. ASSESSMENT AND PLAN: 53 y/o M who presents with nausea/vomiting found to have SBO SBO: Continue NPO Patient passing stool/gas at this time Per surgery, hold off on PO feeds at this time, will attempt to advance diet in AM Patient feels well, no longer with Nausea/vomiting Cont IVF Rest of plan as per resident note
--- NOTE | 2019-11-02 19:01 | PN ---
Physical Exam: SUBJECTIVE: No overnight events. atient seen and examined. Denies N/V. Endorses abd pain improved. 2 non-bloody BM. Passing gas. OBJECTIVE: Vital Signs Period Temp Pulse Resp BP Sys/Ward Pulse Ox Last 24 Hr 97.4 F-98.7 F 55-65 18-20 106-127/59-75 97-98 GENERAL: The patient is awake, alert, and fully oriented, in no acute distress. HEENT: Normal with no signs of trauma.No ptosis. LUNGS: Breath sounds equal, clear to auscultation bilaterally, no wheezes, no crackles, no accessory muscle use. HEART: Regular rate and rhythm, S1, S2 without murmur, rub or gallop. ABDOMEN: nondistended, normoactive bowel sounds, no guarding, no rebound. less TTP below the umbilicus EXTREMITIES: 2+ pulses, warm, well-perfused, no edema. NEUROLOGICAL: Normal speech, gait not observed. PSYCH: Normal mood, normal affect. Laboratory Results - last 24 hr 11/01/19 11/02/19 11/02/19 00:17 07:30 07:30 WBC 6.3 RBC 4.21 Hgb 13.3 Hct 39.1 MCV 93.0 MCH 31.7 MCHC 34.0 RDW 12.7 Plt Count 173 MPV 8.1 Sodium 143 Potassium 3.9 Chloride 109 H Carbon Dioxide 29 Anion Gap 5 L BUN 16.1 Creatinine 0.7 Est GFR (CKD-EPI)AfAm 123.13 Est GFR (CKD-EPI)NonAf 106.24 Random Glucose 96 Calcium 8.2 L Phosphorus 2.6 Magnesium 2.2 COVID-19 (EMILEE) Not detected Active Medications Generic Name Dose Route Start Last Admin Trade Name Freq PRN Reason Stop Dose Admin Heparin Sodium (Porcine) 5,000 unit 11/01/19 14:00 11/02/19 13:28 Heparin - SQ 5,000 unit TID INDY Administration Dextrose/Sodium Chloride 1,000 mls @ 125 mls/hr 11/01/19 07:37 11/02/19 16:53 D5-Ns - IV 125 mls/hr ASDIR INDY Administration Levothyroxine Sodium 88 mcg 11/01/19 07:00 11/02/19 06:12 Synthroid - PO 88 mcg ACBK INDY Administration Pantoprazole Sodium 40 mg 11/02/19 10:00 11/02/19 09:38 Protonix Iv IVPUSH 40 mg DAILY INDY Administration Tamsulosin HCl 0.4 mg 11/02/19 08:30 11/02/19 09:38 Flomax - PO 0.4 mg DAILY@0830 INDY Administration CTAP: liver is mildy hypodense in texture consistent with diffuse fatty infiltration. 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 distal ileal loops are normal in caliber. appearance suggests a partial SBO w/ site of obstruction within the Right lower quadrant. Fecalization of distal ileal loop ASSESSMENT/PLAN: 53 YO M PMH hypothyroidism & BPH p/w lower abdominal pain since AM on 10/30. CTAP was signifcant for SBO with site of obstruction in RLQ. Admitted for SBO. #Small Bowel Obstruction -CTAP: SBO -h/o hernia repair. CTAP shows (possibly 2/2 to internal hernia) -NPO (no ice chips) -D5-NS @ 125 ml/hr -IV ofirmev for pain -no NG tube currently -s/p zofran for nausea. -surgery consult appreciated. ng tube if N/V resume. consider fulls tmw if pt stable #Hypothyroidism - c/w home rx synthroid 88 mcg PO Daily #BPH -c/w tamsulosin -c/o of urinary straining at admission. likely 2/2 to rx non-adherence. takes alfuzosin 10 mg daily at home. -consider bladder scan if urinary retention exacerbates #DVT PPX heparin sq SCDs #FEN D5-NS @ 125 ml/hr monitor lytes NPO (no ice chips) #DISPO med surg Visit type - Emergency Visit Emergency Visit: Yes ED Registration Date: 10/31/19 Care time: The patient presented to the Emergency Department on the above date and was hospitalized for further evaluation of their emergent condition. - New Patient This patient is new to me today: No - Critical Care Critical Care patient: No ATTENDING PHYSICIAN STATEMENT I saw and evaluated the patient. I reviewed the resident's note and discussed the case with the resident. I agree with the resident's findings and plan as documented. SUBJECTIVE: OBJECTIVE: ASSESSMENT AND PLAN:
[2019-11-03] MEDS: DEXTROSE 5%-NORMAL SALINE 1,000 ML IV SCH ×3 (00:29→16:25)
[2019-11-03] MEDS: HEPARIN NA (PORCINE) 5,000 UNITS/ML 1ML VIAL SQ SCH ×3 (06:11→21:14)
[2019-11-03] MEDS: LEVOTHYROXINE NA 88 MCG TABLET (FP) PO SCH (06:12)
[2019-11-03 08:20] LABS: BLOOD UREA NITROGEN 9.8 mg/dL (7-18); CALCIUM 8.4 mg/dL (8.5-10.1); CREATININE 0.7 mg/dL (0.55-1.3); MAGNESIUM 2.2 mg/dL (1.8-2.4); PHOSPHOROUS 3.2 mg/dL (2.5-4.9); POTASSIUM 3.8 mmol/L (3.5-5.1)
--- NOTE | 2019-11-03 08:33 | PN ---
Progress Note (short form) - Note Progress Note: Surgery Patient being followed for SBO seen and examined at bedside with no new complaints. He states that he is mostly feeling "bloating" in the RLQ. He is passing flatus He denies any CP, SOB, N/V, fever or chills. Patient states he is having very little pain. He had 2 BMs yesterday. Vital Signs Temp 97.5 F L 11/03/19 06:06 Pulse 69 11/03/19 06:06 Resp 18 11/03/19 06:06 BP 131/69 11/03/19 06:06 Pulse Ox 99 11/03/19 06:06 Intake & Output 11/02/19 11/02/19 11/03/19 11:59 23:59 11:59 Intake Total 1500 1500 Output Total 2 2 Balance 1498 1498 Intake: IV 1500 1500 D5-Ns - 1,000 ml @ 125 1500 1500 mls/hr IV ASDIR INDY Rx#: [id number] Output: Urine 2 2 Void 2 2 Other: Voiding Method Toilet Toilet Toilet Bowel Movement Yes No # Bowel Movements 2 CBC, BMP 11/02/19 07:30 11/03/19 07:10 PE: A&Ox3, NAD Unlabored resp on RA ABD: Soft, ND, mild RLQ pain on deep palpation, no guarding or rebound. B/L LE compartments soft, supple and non-tender with +DP pulses Problem List - Problems (1) SBO (small bowel obstruction) Assessment/Plan: Resolving SBO, patient continues to improve. COVID negative. 1. Start full liquids 2. Saline lock IVF if tolerating clears 3. CBC, BMP in AM 4. Replete elytes prn 5. GI PPx 6. DVT PPx 7. Serial ABD exams 8. Call surgery PA if vomiting-will resume NPO and NGT PRN Above plan discussed with Dr. Barrios and agrees. Code(s): K56.609 - UNSP INTESTNL OBST, UNSP TO PARTIAL VERSUS COMPLETE OBST
[2019-11-03] MEDS: PANTOPRAZOLE SODIUM 40 MG VIAL IVPUSH SCH (10:53)
[2019-11-03] MEDS: TAMSULOSIN HCL 0.4 MG CAP PO SCH (10:53)
--- NOTE | 2019-11-03 15:07 | PN ---
Teaching Attending Note Name of Resident: Grzegorz Castillo ATTENDING PHYSICIAN STATEMENT I saw and evaluated the patient. I reviewed the resident's note and discussed the case with the resident. I agree with the resident's findings and plan as documented. SUBJECTIVE: Pt feels well, wants to go home OBJECTIVE: Vital Signs Period Temp Pulse Resp BP Sys/Ward Pulse Ox Last 24 Hr 97.4 F-98.1 F 59-69 18-20 106-136/64-79 97-99 GENERAL: Awake, alert, in no acute distress. HEAD: Normal with no signs of trauma. EYES: Pupils equal, round and reactive to light, extraocular movements intact, sclera anicteric, conjunctiva clear. EARS, NOSE, THROAT: Ears normal, nares patent, Moist mucous membranes. NECK: Normal range of motion, No JVD, LUNGS: Breath sounds equal, clear to auscultation bilaterally. No wheezes, and no crackles. No accessory muscle use. HEART: Regular rate and rhythm, normal S1 and S2 without murmur, rub or gallop. ABDOMEN: Soft, tender to deep palpation, BS+ MUSCULOSKELETAL: Normal range of motion at all joints. No bony deformities or tenderness. No CVA tenderness. EXTREMITIES: 2+ pulses, warm, well-perfused. No calf tenderness. No peripheral edema. NEUROLOGICAL: Cranial nerves II-XII intact. Normal speech. PSYCHIATRIC: Cooperative. Good eye contact. Appropriate mood and affect. SKIN: Warm, dry, normal turgor, no rashes or lesions noted. ASSESSMENT AND PLAN: 53 y/o M who presents with nausea/vomiting found to have SBO SBO: Tolerating PO intake with full liquid, passing BM now Plan to discharge tomorrow if patient is still feeling well Appreciate Sx recs, No surgical intervention planned at this time Rest of plan as per resident note
--- NOTE | 2019-11-03 15:13 | PN ---
Physical Exam: SUBJECTIVE: No overnight events. Patient seen and examined. Denies N/V. Endorses abd pain slightly worsened, but not as severe as on admission. No BM. Passing gas. OBJECTIVE: Vital Signs Period Temp Pulse Resp BP Sys/Ward Pulse Ox Last 24 Hr 97.4 F-98.1 F 59-69 18-20 106-136/64-79 97-99 GENERAL: The patient is awake, alert, and fully oriented, in no acute distress. HEENT: Normal with no signs of trauma.No ptosis. LUNGS: Breath sounds equal, clear to auscultation bilaterally, no wheezes, no crackles, no accessory muscle use. HEART: Regular rate and rhythm, S1, S2 without murmur, rub or gallop. ABDOMEN: nondistended, normoactive bowel sounds, no guarding, TTP below the umbilicus (R>L). EXTREMITIES: 2+ pulses, warm, well-perfused, no edema. NEUROLOGICAL: Normal speech, gait not observed. PSYCH: Normal mood, normal affect. Laboratory Results - last 24 hr 11/03/19 07:10 Sodium 142 Potassium 3.8 Chloride 108 H Carbon Dioxide 28 Anion Gap 7 L BUN 9.8 Creatinine 0.7 Est GFR (CKD-EPI)AfAm 123.13 Est GFR (CKD-EPI)NonAf 106.24 Random Glucose 86 Calcium 8.4 L Phosphorus 3.2 Magnesium 2.2 Active Medications Generic Name Dose Route Start Last Admin Trade Name Freq PRN Reason Stop Dose Admin Heparin Sodium (Porcine) 5,000 unit 11/01/19 14:00 11/03/19 13:48 Heparin - SQ 5,000 unit TID INDY Administration Dextrose/Sodium Chloride 1,000 mls @ 125 mls/hr 11/01/19 07:37 11/03/19 08:34 D5-Ns - IV 125 mls/hr ASDIR INDY Administration Levothyroxine Sodium 88 mcg 11/01/19 07:00 11/03/19 06:12 Synthroid - PO 88 mcg ACBK INDY Administration Pantoprazole Sodium 40 mg 11/02/19 10:00 11/03/19 10:53 Protonix Iv IVPUSH 40 mg DAILY INDY Administration Tamsulosin HCl 0.4 mg 11/02/19 08:30 11/03/19 10:53 Flomax - PO 0.4 mg DAILY@0830 INDY Administration CTAP: liver is mildy hypodense in texture consistent with diffuse fatty infiltration. 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 distal ileal loops are normal in caliber. appearance suggests a partial SBO w/ site of obstruction within the Right lower quadrant. Fecalization of distal ileal loop ASSESSMENT/PLAN: 53 YO M PMH hypothyroidism & BPH p/w lower abdominal pain since AM on 10/30. CTAP was signifcant for SBO with site of obstruction in RLQ. Admitted for SBO. #Small Bowel Obstruction -CTAP: SBO -h/o hernia repair. CTAP shows (possibly 2/2 to internal hernia) -D5-NS @ 125 ml/hr -IV ofirmev for pain -s/p zofran for nausea. -surgery consult appreciated. NG tube and resume NPO if N/V resume #Hypothyroidism - c/w home rx synthroid 88 mcg PO Daily #BPH -c/w tamsulosin -c/o of urinary straining at admission. likely 2/2 to rx non-adherence. takes alfuzosin 10 mg daily at home. -consider bladder scan if urinary retention exacerbates #DVT PPX heparin sq SCDs #FEN D5-NS @ 125 ml/hr monitor lytes started on full liquid diet. patient tolerating diet. denies n/v #DISPO med surg Visit type - Emergency Visit Emergency Visit: Yes ED Registration Date: 10/31/19 Care time: The patient presented to the Emergency Department on the above date and was hospitalized for further evaluation of their emergent condition. - New Patient This patient is new to me today: No - Critical Care Critical Care patient: No ATTENDING PHYSICIAN STATEMENT I saw and evaluated the patient. I reviewed the resident's note and discussed the case with the resident. I agree with the resident's findings and plan as documented. SUBJECTIVE: OBJECTIVE: ASSESSMENT AND PLAN:
[2019-11-04] MEDS ORDERED: PT OWN MED DRAWER 7, Y5N ONE (05:21)
[2019-11-04] MEDS: HEPARIN NA (PORCINE) 5,000 UNITS/ML 1ML VIAL SQ SCH ×2 (05:55→14:31)
[2019-11-04] MEDS: LEVOTHYROXINE NA 88 MCG TABLET (FP) PO SCH (06:25)
[2019-11-04] MEDS: TAMSULOSIN HCL 0.4 MG CAP PO SCH (08:30)
[2019-11-04] MEDS: PANTOPRAZOLE SODIUM 40 MG VIAL IVPUSH SCH (09:15)
[2019-11-04] MEDS: DEXTROSE 5%-NORMAL SALINE 1,000 ML IV SCH (09:19)
--- NOTE | 2019-11-04 09:45 | PN ---
Progress Note (short form) - Note Progress Note: Surgery: Pt not having any nausea or emesis. Tolerated fulls and had BM yesterday morning. Passing flatus. Vital Signs Period Temp Pulse Resp BP Sys/Ward Pulse Ox Last 24 Hr 97.6 F-98.7 F 53-62 18-20 117-136/74-78 97-100 GEN: A&0x3, NAD ABD: soft, non-distended, non-tender CBC, BMP 11/02/19 07:30 11/03/19 07:10 A/p: 53 yo male with h/o of lap inguinal hernia repair now with improving SBO clinically He is tolerating a full liquid diet, this am he had a regular diet for breakfast. Again he moved his bowels today and is passing flatus. Pt stable for discharge to home. D/w Dr. Barrios and recommending full liquid versus regular diet for the next several days. Discussed this with the patient and advised him to monitor for increased abd pain, nausea or emesis and not having bowel function. Return if these symptoms persist or increase. Diet recommendations completed on his discharge instructions
--- NOTE | 2019-11-04 13:30 | PN ---
Teaching Attending Note Name of Resident: Grzegorz Castillo ATTENDING PHYSICIAN STATEMENT I saw and evaluated the patient. I reviewed the resident's note and discussed the case with the resident. I agree with the resident's findings and plan as documented. SUBJECTIVE: Patient feels well wants to go home OBJECTIVE: Vital Signs Period Temp Pulse Resp BP Sys/Ward Pulse Ox Last 24 Hr 97.6 F-98.7 F 53-62 18-20 117-131/70-78 100-100 GENERAL: Awake, alert, in no acute distress. HEAD: Normal with no signs of trauma. EYES: Pupils equal, round and reactive to light, extraocular movements intact, sclera anicteric, conjunctiva clear. EARS, NOSE, THROAT: Ears normal, nares patent, Moist mucous membranes. NECK: Normal range of motion, No JVD, LUNGS: Breath sounds equal, clear to auscultation bilaterally. No wheezes, and no crackles. No accessory muscle use. HEART: Regular rate and rhythm, normal S1 and S2 without murmur, rub or gallop. ABDOMEN: Soft, tender to deep palpation, BS+ MUSCULOSKELETAL: Normal range of motion at all joints. No bony deformities or tenderness. No CVA tenderness. EXTREMITIES: 2+ pulses, warm, well-perfused. No calf tenderness. No peripheral edema. NEUROLOGICAL: Cranial nerves II-XII intact. Normal speech. PSYCHIATRIC: Cooperative. Good eye contact. Appropriate mood and affect. SKIN: Warm, dry, normal turgor, no rashes or lesions noted. ASSESSMENT AND PLAN: 53 y/o M who presents with nausea/vomiting found to have SBO SBO: Tolerating PO intake, passing BM Plan to discharge today with outpatient follow up Rest of plan as per resident note/Discharge summary
[2019-11-04 14:26] VITALS: BP 126/85; PULSE 63; TEMP 97.5
--- NOTE | 2019-11-04 17:11 | DS ---
Physical Exam: SUBJECTIVE: No overnight events. Patient seen and examined. Denies N/V & abd pain. Tolerated full diet for breakfast and lunch. OBJECTIVE: Vital Signs Period Temp Pulse Resp BP Sys/Ward Pulse Ox Last 24 Hr 97.5 F-98.7 F 53-63 18-20 117-131/70-85 100-100 PHYSICAL EXAM GENERAL: The patient is awake, alert, and fully oriented, in no acute distress. HEENT: Normal with no signs of trauma.No ptosis. LUNGS: Breath sounds equal, clear to auscultation bilaterally, no wheezes, no crackles, no accessory muscle use. HEART: Regular rate and rhythm, S1, S2 without murmur, rub or gallop. ABDOMEN: nondistended, normoactive bowel sounds, no guarding, abdominal pain improved EXTREMITIES: 2+ pulses, warm, well-perfused, no edema. NEUROLOGICAL: Normal speech, gait not observed. PSYCH: Normal mood, normal affect. LABS Laboratory Last Values WBC 6.3 K/mm3 (4.0-10.0) 11/02/19 07:30 RBC 4.21 M/mm3 (4.00-5.60) 11/02/19 07:30 Hgb 13.3 GM/dL (11.7-16.9) 11/02/19 07:30 Hct 39.1 % (35.4-49) 11/02/19 07:30 MCV 93.0 fl (80-96) 11/02/19 07:30 MCH 31.7 pg (25.7-33.7) 11/02/19 07:30 MCHC 34.0 g/dl (32.0-35.9) 11/02/19 07:30 RDW 12.7 % (11.9-15.9) 11/02/19 07:30 Plt Count 173 K/MM3 (134-434) 11/02/19 07:30 MPV 8.1 fl (7.5-11.1) 11/02/19 07:30 Absolute Neuts (auto) 7.8 K/mm3 (1.5-8.0) 11/01/19 08:05 Neutrophils % 82.9 % (42.8-82.8) H 11/01/19 08:05 Lymphocytes % 12.5 % (8-40) D 11/01/19 08:05 Monocytes % 4.3 % (3.8-10.2) 11/01/19 08:05 Eosinophils % 0.0 % (0-4.5) D 11/01/19 08:05 Basophils % 0.3 % (0-2.0) 11/01/19 08:05 Nucleated RBC % 0 % (0-0) 11/01/19 08:05 PT with INR 12.60 SEC (9.7-13.0) 10/31/19 22:15 INR 1.07 (0.83-1.09) 10/31/19 22:15 Sodium 142 mmol/L (136-145) 11/03/19 07:10 Potassium 3.8 mmol/L (3.5-5.1) 11/03/19 07:10 Chloride 108 mmol/L (98-107) H 11/03/19 07:10 Carbon Dioxide 28 mmol/L (21-32) 11/03/19 07:10 Anion Gap 7 MMOL/L (8-16) L 11/03/19 07:10 BUN 9.8 mg/dL (7-18) 11/03/19 07:10 Creatinine 0.7 mg/dL (0.55-1.3) 11/03/19 07:10 Est GFR (CKD-EPI)AfAm 123.13 11/03/19 07:10 Est GFR (CKD-EPI)NonAf 106.24 11/03/19 07:10 Random Glucose 86 mg/dL (74-106) 11/03/19 07:10 Calcium 8.4 mg/dL (8.5-10.1) L 11/03/19 07:10 Phosphorus 3.2 mg/dL (2.5-4.9) 11/03/19 07:10 Magnesium 2.2 mg/dL (1.8-2.4) 11/03/19 07:10 Total Bilirubin 0.6 mg/dL (0.2-1) 11/01/19 08:05 AST 14 U/L (15-37) L 11/01/19 08:05 ALT 29 U/L (13-61) 11/01/19 08:05 Alkaline Phosphatase 77 U/L (45-117) 11/01/19 08:05 Creatine Kinase 103 U/L (26-308) 10/31/19 22:15 Troponin I < 0.02 ng/ml (0.00-0.05) 10/31/19 22:15 Total Protein 6.8 g/dl (6.4-8.2) 11/01/19 08:05 Albumin 3.9 g/dl (3.4-5.0) 11/01/19 08:05 Lipase 77 U/L (73-393) 10/31/19 19:00 Urine Color Yellow 10/31/19 19:00 Urine Appearance Clear 10/31/19 19:00 Urine pH 5.0 (5.0-8.0) 10/31/19 19:00 Ur Specific [place] 1.023 (1.010-1.035) 10/31/19 19:00 Urine Protein Trace (NEGATIVE) 10/31/19 19:00 Urine Glucose (UA) Negative (NEGATIVE) 10/31/19 19:00 Urine Ketones Trace (NEGATIVE) H 10/31/19 19:00 Urine Blood Negative (NEGATIVE) 10/31/19 19:00 Urine Nitrite Negative (NEGATIVE) 10/31/19 19:00 Urine Bilirubin Negative (NEGATIVE) 10/31/19 19:00 Urine Urobilinogen 0.2 mg/dL (0.2-1.0) 10/31/19 19:00 Ur Leukocyte Esterase Negative (NEGATIVE) 10/31/19 19:00 COVID-19 (EMILEE) Not detected (Not Detected) 11/01/19 00:17 Blood Type O NEGATIVE 10/31/19 22:15 Antibody Screen Negative 10/31/19 22:15 HOSPITAL COURSE: 53 YO M PMH hypothyroidism & BPH p/w lower abdominal pain. CTAP was signifcant for SBO with site of obstruction in RLQ. h/o hernia repair. Admitted for SBO; managed with D5-NS @ 125 ml/hr, IV ofirmev for pain, and zofran for nausea. Pt was NPO. Symptoms improved and pt tolerated full diet. Pt is stable for discharge. CTAP: liver is mildy hypodense in texture consistent with diffuse fatty infiltration. 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 moderately dilated, fluid-filled loops of small bowel throughout the abdomen and pelvis. distal ileal loops are normal in caliber. appearance suggests a partial SBO w/ site of obstruction within the Right lower quadrant. Fecalization of distal ileal loop Date of Admission:10/31/19 Date of Discharge: 11/04/19 Minutes to complete discharge: 43 Discharge Summary Problems reviewed: Yes Reason For Visit: SMALL BOWEL OBSTRUCTION Condition: Stable - Instructions Diet, Activity, Other Instructions: You came to the hospital for lower abdominal pain. Imaging of your abdomen showed an obstruction in your small bowel. This was managed with pain medications, IV fluids, and bowel rest. Surgery evaluated you; surgery was not indicated. Imaging of your abdomen also showed fatty liver. Please maintain a low fat/low cholesterol diet. Please follow-up with your primary care physician for labwork for a lipid panel to evaluate your cholesterol levels. Your symptoms improved. You are stable for discharge. MEDICATIONS Please START taking prantoprazole (Protonix) 40 mg once a day. Please take your other home medications as prescribed. FOLLOW-UP Please follow-up with surgeon, Dr. Barrios, for follow-up of your small bowel obstruction. Please follow-up with your primary care physician, Dr. Jones, for labwork for a lipid panel to evaluate your cholesterol levels. Please also discuss your recent hospitalization and for general health maintenance. DIET: recommend to continue full liquid diet until Friday and then may resume regular diet if not having an increase in abdomen pain/bloating. ADDITIONAL INSTRUCTIONS Please call 911 or come directly to the emergency department if you experience increased abdominal pain, nausea , vomiting, not passing gas/having bowel movements, worsening/increasing symptoms, chest pain, shortness of breath, loss of alertness/awareness, loss of function, chest pain, unusual headache, vision change, difficulty speaking, numbness, tingling, unusual bleeding, or any alarming symptoms. Referrals: Garcia Barrios MD [Staff Physician] - (f/u for admission for SBO improved with IV fluids, bowel rest) Disposition: HOME - Home Medications Comprehensive Discharge Medication List: Ambulatory Orders Alfuzosin HCl [Alfuzosin HCl ER] 10 mg PO DAILY 10/31/19 Levothyroxine Sodium [Synthroid] 88 mcg PO DAILY 10/31/19 Pantoprazole Sodium [Protonix -] 40 mg PO DAILY 30 Days #30 tablet.ec 11/04/19 This patient is new to me today: No Emergency Visit: Yes ED Registration Date: 10/31/19 Care time: The patient presented to the Emergency Department on the above date and was hospitalized for further evaluation of their emergent condition. Critical Care patient: No - Discharge Referral Referred to [facility] No ATTENDING PHYSICIAN STATEMENT I saw and evaluated the patient. I reviewed the resident's note and discussed the case with the resident. I agree with the resident's findings and plan as documented. SUBJECTIVE: OBJECTIVE: ASSESSMENT AND PLAN:
== END 2019-11-04 15:41 | disposition home or self-care (01) | DRG 390 ==
LOC: JER 17:11 → JERBED 23:29 → J6WEST-2 11-01 16:32 → J6S 11-03 12:54
PROVIDERS: ADMIT Internal Medicine; ATTEND Internal Medicine
DX: K56.609 Unspecified intestinal obstruction, unspecified as to partial versus complete obstruction (principal); R10.31 Right lower quadrant pain; N40.0 Benign prostatic hyperplasia without lower urinary tract symptoms; E03.9 Hypothyroidism, unspecified; K46.9 Unspecified abdominal hernia without obstruction or gangrene; R11.2 Nausea with vomiting, unspecified
CPT/HCPCS: 36415; 74177-TC; 80048; 80053; 81003; 82550; 83690; 83735; 84100; 84484; 85025; 85027; 85610; 86850; 86900; 86901; 87086; 93005; 93010; 99285-25; J0131; J1644; Q9967; U0003

== ENCOUNTER 2022-08-06 08:05 | Day surgery (SDC) | payer BC ==
[2022-07-31 16:06] VITALS: BMI 24.7
[2022-08-06] MEDS ORDERED: PROPOFOL 20 ML ONE ×2 (08:56)
[2022-08-06] MEDS ORDERED: DEXAMETHASONE SOD PHOSPHATE 4 MG/1 ML VIAL ONE (08:57)
[2022-08-06] MEDS ORDERED: MIDAZOLAM HCL 2 MG/2 ML SINGLE DOSE VIAL ONE (08:57)
[2022-08-06] MEDS ORDERED: ONDANSETRON 4 MG/2 ML VIAL ONE (08:57)
[2022-08-06] MEDS ORDERED: SODIUM CHLORIDE 0.9% P/F 10 ML VIAL IJ ONE (09:02)
[2022-08-06] MEDS ORDERED: BUPIVACAINE HCL/PF 0.5% (5MG/ML) 10 ML VIAL ONE (09:02)
[2022-08-06] MEDS ORDERED: LIDOCAINE 1%-EPI 1:100,000 30 ML MDV IJ ONE (09:02)
[2022-08-06] MEDS ORDERED: ONDANSETRON 4 MG/2 ML VIAL IVPUSH PRN (09:18)
[2022-08-06] MEDS ORDERED: oxyCODONE HCL 5 MG TABLET PO PRN ×2 (09:18)
[2022-08-06] MEDS ORDERED: LACTATED RINGERS SOLUTION 1,000 ML IV SCH (09:30)
[2022-08-06] MEDS ORDERED: KETOROLAC TROMETHAMINE 30 MG/1 ML VIAL ONE (09:38)
[2022-08-06] MEDS ORDERED: ceFAZolin SODIUM 1 GM VIAL ONE (10:00)
[2022-08-06 11:08] VITALS: RESP 16; TEMP 97.5
[2022-08-06 11:27] VITALS: BP 115/67; PULSE 68
== END 2022-08-06 12:00 | disposition home or self-care (01) ==
LOC: FASU 08:05
PROVIDERS: ATTEND Orthopaedic Surgery
PROC: 0SBD4ZZ Excision of Left Knee Joint, Percutaneous Endoscopic Approach (ICD-10-PCS; principal; 2022-08-06 09:41)
DX: S83.242A Other tear of medial meniscus, current injury, left knee, initial encounter (principal); X58.XXXA Exposure to other specified factors, initial encounter; Y92.9 Unspecified place or not applicable; Y93.9 Activity, unspecified
CPT/HCPCS: 94760

== ENCOUNTER 2024-01-05 03:54 | Day surgery (SDC) | payer BC ==
[2023-12-30 14:26] VITALS: BMI 25.8
[2024-01-05 09:39] VITALS: TEMP 97.7
[2024-01-05 10:06] VITALS: BP 110/74; PULSE 63; RESP 14
== END 2024-01-05 10:10 | disposition home or self-care (01) ==
LOC: JASU-ENDO 03:54
PROVIDERS: ATTEND Internal Medicine Gastroenterology
PROC: 0DBP8ZX Excision of Rectum, Via Natural or Artificial Opening Endoscopic, Diagnostic (ICD-10-PCS; 2024-01-05)
PROC: 0DBK8ZX Excision of Ascending Colon, Via Natural or Artificial Opening Endoscopic, Diagnostic (ICD-10-PCS; 2024-01-05)
PROC: 0DBM8ZX Excision of Descending Colon, Via Natural or Artificial Opening Endoscopic, Diagnostic (ICD-10-PCS; principal; 2024-01-05 09:00)
DX: Z12.11 Encounter for screening for malignant neoplasm of colon (principal); D12.4 Benign neoplasm of descending colon; D12.8 Benign neoplasm of rectum; K63.5 Polyp of colon; D17.5 Benign lipomatous neoplasm of intra-abdominal organs; Z86.0100 Personal history of colon polyps, unspecified
CPT/HCPCS: 88305-TC